=== PATIENT | male | born 1995 ===

== ENCOUNTER → 2022-02-09 | Outpatient (CLI) | payer OTHER | LOC: M WUC 10:24 | PROVIDERS: ATTEND Physician Assistant | DX: S29.011A Strain of muscle and tendon of front wall of thorax, initial encounter (principal); R07.1 Chest pain on breathing; W18.30XA Fall on same level, unspecified, initial encounter; Y92.009 Unspecified place in unspecified non-institutional (private) residence as the place of occurrence of the external cause ==